=== PATIENT | male | born 1950 | race Caucasian/White ===

== ENCOUNTER 2025-01-26 07:47 | Day surgery (SDC) | payer MEDICARE ==
[~2025-01-26] VITALS: Ht 180.3 cm; Wt 112.9 kg
[~2025-01-26 07:47] MED LIST: CYCLOPENTOLATE 1% OPHTH SOLN 2 ML BTL OS SCH; LIDOCAINE 3.5% 1 ML OPHTH TOPICAL GEL OU ONE; MAGN200T PO; MIDAZOLAM INJ 2 MG/2 ML VIAL As Ordered ONE; OFLOXACIN 0.3 % (OCUFLOX) OPTH SOL 5ML OS ONE; OMEG10002 PO; PHENYLEPHRINE 10% OPHTH SOL 5ML OS PRN; PHENYLEPHRINE 2.5% OPHTH SOL 2ML OS SCH; THERTAB52 PO; TROPICAMIDE 1% OPHTH SOLN 15ML OS SCH; VITA100093 PO
[2025-01-26] MEDS: LIDOCAINE 1% SDV 5 ML VIAL As Ordered ONE (10:12)
[2025-01-26] MEDS: CEFUROXIME 1 MG/0.1 ML INTRACAMERAL INJ As Ordered ONE (10:12)
[2025-01-26] MEDS: BSS IRRIG/VANCO(10MG)/TOBRA(5MG)/EPINEPH(1:1000-0.5CC)500ML BAG-ORONLY As Ordered ONE (10:13)
[2025-01-26 10:24] VITALS: BP 158/79; TEMP 97.8; O2SAT 94
== END 2025-01-26 10:41 | disposition home or self-care (01) ==
LOC: M SDC 07:47
PROVIDERS: ATTEND Ophthalmology
DX: H25.12 Age-related nuclear cataract, left eye (principal); Z98.41 Cataract extraction status, right eye; Z87.891 Personal history of nicotine dependence
CPT/HCPCS: 66984; J0697; J2250; J3010; V2632